=== PATIENT | male | born 1945 | race Caucasian/White ===

== ENCOUNTER 2024-01-27 18:34 | Emergency (ER) | payer OTHER, BC ==
[2024-01-27 18:54] VITALS: RESP 16; TEMP 98; BMI 24.1
[2024-01-27] MEDS: DEXTROSE 50%-WATER - 25 GM/50 ML VIAL IVPUSH ONE (18:57)
[2024-01-27 19:16] LABS: HEMATOCRIT 41.6 % (35.4-49); HEMOGLOBIN 12.8 G/dL (11.7-16.9); MCHC 30.8 g/dl (32.0-35.9); MEAN CELL VOLUME 62.5 fl (80-96); MEAN PLT VOLUME 8.1 fl (7.5-11.1); PLATELET COUNT 291.5 10^3/uL (134-434); RBC 6.66 10^6/uL (4.00-5.60); WHITE BLOOD COUNT 11.8 10^3/uL (4.0-10.8)
[2024-01-27 19:32] LABS: MCH 19.2 pg (25.7-33.7)
[2024-01-27 19:34] LABS: ALBUMIN 4.7 g/dl (3.4-5.0); BILIRUBIN,TOTAL 0.9 mg/dl (0.2-1); CALCIUM 9.7 mg/dl (8.5-10.1); CREATININE 1.3 mg/dl (0.6-1.3); POTASSIUM 3.7 mmol/L (3.5-5.1); TOT PROT 7.4 g/dl (6.4-8.2)
[2024-01-27 20:01] LABS: ANISOCYTOSIS 1+; PLATELET ESTIMATE ADEQUATE
[2024-01-27 20:14] VITALS: BP 118/53; PULSE 58
== END 2024-01-27 20:16 | disposition home or self-care (01) ==
LOC: FER 18:34
PROC: 3E0337Z Introduction of Electrolytic and Water Balance Substance into Peripheral Vein, Percutaneous Approach (ICD-10-PCS; principal; 2024-01-27)
DX: E11.649 Type 2 diabetes mellitus with hypoglycemia without coma (principal); Z79.4 Long term (current) use of insulin; Z20.822 Contact with and (suspected) exposure to COVID-19
CPT/HCPCS: 0241U-QW; 36415; 71045-TC-FY; 80053; 82962; 84484; 85027; 93005; 99285-25